=== PATIENT | male | born 1985 | race Caucasian/White ===

== ENCOUNTER → 2016-11-24 | Day surgery (SDC) | payer OTHER ==
[~2016-11-24] MED LIST: CARDIZEM CD (T240 MG PO; CARDIZEM30 MG PO; KRILL OIL500 MG PO; MAGNESIUM400 M1 PO; NEXIUM40 MG PO; POTASSIUM PO; POTASSIUM99 MG PO; RYTHMOL SR325 MG PO; XARELTO20 MG PO
--- NOTE | ~2016-11-24 | OR ---
PATIENT'S NAME: CRICKET MORA I [facility] AGE: 31 Y [address] 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 INDICATION: Status post pulmonary vein isolation ablation with recurrence of atrial flutter. PROCEDURE IN DETAIL: The patient was brought to the preop suite in fasting state and prepped and draped in normal manner. Propofol was administered dose 200 mg through nurse superintendent stations. Paddles placed in AP dimension. Once adequate levels of sedation were obtained, 50 joules of synchronized therapy was delivered with prompt judaism of sinus rhythm. 12-lead EKG is pending at the time of this dictation. CONCLUSION: 1. Successful judaism to normal sinus rhythm using DC cardioversion. 2. 12-lead EKG is pending at the time of this dictation. 3. The patient will continue antiarrhythmic drug therapy as well as long- term anticoagulation. I would like to thank Dr. Chisholm for the opportunity to participate in the care of Mr. Mora. CYNDY KANG MD DJM/modl /[id number] d: 12/18/16 1150 t: 01/05/17 0817, OPERATIVE SUMMARY
== END | disposition disaster alternative care site (69) ==
LOC: GPOC 11-23 16:00 → EDSTATUS 06:45 → GPOC 06:45 → GSDC 06:57 → GPOC 16:00
PROC: 5A2204Z Restoration of Cardiac Rhythm, Single (ICD-10-PCS; principal; 2016-11-24)
DX: I48.91 Unspecified atrial fibrillation (principal); I48.92 Unspecified atrial flutter; E78.5 Hyperlipidemia, unspecified; Z86.79 Personal history of other diseases of the circulatory system
CPT/HCPCS: J2001; J7030

== ENCOUNTER 2017-04-13 18:26 | Emergency (ER) | payer OTHER ==
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
== END 2017-04-13 19:02 | disposition disaster alternative care site (69) ==
LOC: GMED 18:26
DX: S09.90XA Unspecified injury of head, initial encounter (principal); I48.91 Unspecified atrial fibrillation; Z79.01 Long term (current) use of anticoagulants; Z79.899 Other long term (current) drug therapy; Z98.890 Other specified postprocedural states; V49.40XA Driver injured in collision with unspecified motor vehicles in traffic accident, initial encounter; Y92.410 Unspecified street and highway as the place of occurrence of the external cause